=== PATIENT | male | born 1940 | race Caucasian/White ===

== ENCOUNTER → 2017-04-28 07:01 | Outpatient (CLI) | payer MEDICARE | END | disposition home or self-care (01) | LOC: D.CT 04-20 13:00 → D.RAD 04-20 13:00 → D.CT 04-20 14:00 → D.RAD 07:01 | DX: M25.511 Pain in right shoulder (principal) ==

== ENCOUNTER → 2017-06-09 09:24 | Outpatient (CLI) | payer MEDICARE ==
[~2017-06-09 09:24] MED LIST: CENTRUM MEN'S1 EACH PO; CHLORTHALIDONE50 MG PO; FENTANYL; FISH OIL 1,0001 CA1 PO; GABAPENTIN100 MG PO; HYDROCODONE-APA1 TAB PO; HYZAAR 100-25 T1 TAB PO; K-TAB10 MEQ PO; PRAVACHOL40 MG PO; XARELTO20 MG PO; ZYLOPRIM300 MG PO
[2017-06-29 11:05] VITALS: BMI 26.1
== END | disposition home or self-care (01) ==
LOC: D.RAD 09:24
DX: M25.512 Pain in left shoulder (principal)

== ENCOUNTER → 2017-06-29 10:00 | Day surgery (SDC) | payer MEDICARE ==
[2017-06-28 15:24] LABS: HEMATOCRIT 36.2 % (42.0-54.0); HEMOGLOBIN 13.7 g/dL (13.5-17.5); MCH 35.2 pg (26.0-34.0); MCHC 37.8 g/dL (31.0-37.0); MCV 93.1 fL (80.0-100.0); MEAN PLATELET VOLUME 8.8 fL (7.4-10.4); RBC 3.89 10x6/uL (4.20-6.10); RDW 12.6 % (11.5-14.5); WBC 7.6 10x3/uL (4.8-10.8)
[2017-06-28 15:53] LABS: CALC OSMOLALITY 259 mosm/kg (275-300); CALCIUM 8.9 mg/dL (8.5-10.1); CARBON DIOXIDE 30.1 mmol/L (21.0-32.0); CHLORIDE - SERUM 92 mmol/L (98-107); CREATININE - SERUM 0.9 mg/dL (0.6-1.3); GLUCOSE 90 mg/dL (74-106); POTASSIUM - SERUM 3.4 mmol/L (3.5-5.1); SODIUM 130 mmol/L (136-145); UREA NITROGEN 11 mg/dL (7-18); eGFR NON AFRICAN AMERICAN 87 mL/min (90-120)
[~2017-06-29] VITALS: Ht 182.9 cm; Wt 87.3 kg
--- NOTE | ~2017-06-29 | OP ---
PATIENT NAME: RODERICK WITT MEDICAL RECORD: [id number] :42 LOCATION:[facility] ADMISSION DATE: SURGEON: SHERIN BROWN MD DATE OF OPERATION: 06/29/2017 PREOPERATIVE DIAGNOSES: 1. Rotator cuff tear of the left shoulder. 2. Acromioclavicular arthritis of the left shoulder. 3. Impingement syndrome. POSTOPERATIVE DIAGNOSES: 1. Rotator cuff tear of the left shoulder. 2. Acromioclavicular arthritis of the left shoulder. 3. Impingement syndrome. PROCEDURES: 1. Arthroscopic rotator cuff repair of the left shoulder. 2. Arthroscopic distal clavicle excision of the left shoulder - 1 cm done through separate incision. 3. Arthroscopic subacromial decompression, acromioplasty, and bursectomy. SURGEON: Sherin Brown MD ANESTHESIA: General. INTRAOPERATIVE COMPLICATIONS: None. SUMMARY OF PATHOLOGIC FINDINGS: Consistent with the preoperative diagnoses. The patient did indeed have a full-thickness rotator cuff tear with impingement and acromioclavicular arthritis. OPERATIVE SUMMARY IN DETAIL: After obtaining the appropriate preoperative orthopedic surgery consent as well as anesthetic consultation, evaluation, and clearance, the patient was brought to the operating room and placed on the operating table in supine position. After adequate general laryngeal mask was administered, the patient was placed in right lateral decubitus position. All pressure points were well padded to include down leg peroneal pad as well as axillary roll. The patient was held firmly to the operating table using the vacuum pack suction system. Left upper extremity and shoulder were then prepped and draped in routine sterile fashion. Arm was held in the Arthrex traction boom at 30 degrees of forward flexion, 30 degrees of abduction, 10 pounds of traction laterally. Arthroscopy was established in the glenohumeral joint from the posterior portal. Anterior portal was established in the anterior safe interval. Diagnostic arthroscopy revealed the above findings. Transarthroscopic rotator cuff portal was created to help debride portions of torn rotator cuff. Attention was then turned to the subacromial space. While in the subacromial space, Rector tissue ablation system was used to denude the undersurface of the acromion of all soft tissue elements and release the coracoacromial ligament. A 5-0 barrel bur was then used to perform acromioplasty at the level of acromioclavicular joint. Having completed this, separate arthroscopic anterior portal was utilized to remove 1 cm of the distal clavicle with a 5-0 barrel bur. Attention was then returned to the rotator cuff. A #2 FiberTape was placed in inverted mattress style fashion, anchored laterally with 5.5 SwiveLock from Arthrex, resulting in excellent coverage of the supraspinatus tendinous footprint. Having completed this, arthroscopy OPERATIVE REPORT [id number] RODERICK WITT portals were closed in routine interrupted fashion using 4-0 Prolene. Sterile dressings were applied. The patient was awakened and taken to the recovery room in stable condition. All final needle and sponge counts were correct. TRANSINT:[id number] Voice Confirmation ID: [id number] DOCUMENT ID: [id number] STEPHANIE HALL, SHERIN MCCRACKEN at 0749 CC: [id number] DICTATION DATE: 06/29/17 162 TAXI DRIVER: 06/29/171951 [facility] 06/29/17 [facility] [address] [place] [address]
[2017-06-29 11:05] VITALS: Ht 182.9 cm; Wt 87.3 kg
== END | disposition home or self-care (01) ==
LOC: D.OPS 10:00 → D.PAN 12:30 → D.OPS 14:15 → D.PAN 15:20
PROVIDERS: Anesthesiology
DX: M75.122 Complete rotator cuff tear or rupture of left shoulder, not specified as traumatic (principal); M75.42 Impingement syndrome of left shoulder; M13.812 Other specified arthritis, left shoulder; Z01.812 Encounter for preprocedural laboratory examination

== ENCOUNTER → 2018-02-23 09:05 | Outpatient (CLI) | payer MEDICARE ==
[2017-06-29 11:05] VITALS: BMI 26.1
== END | disposition home or self-care (01) ==
LOC: D.LAB 09:05
DX: R68.82 Decreased libido (principal); R53.82 Chronic fatigue, unspecified

== ENCOUNTER → 2018-03-02 08:34 | Outpatient (CLI) | payer MEDICARE ==
[2017-06-29 11:05] VITALS: BMI 26.1
[2018-03-02 09:41] LABS: ALBUMIN 3.2 g/dL (3.4-5.0); BILIRUBIN - DIRECT 0.47 mg/dL (0.00-0.30); BILIRUBIN - INDIRECT 0.64 mg/dL (0.00-1.00); BILIRUBIN - TOTAL 1.11 mg/dL (0.2-1.3); PROTEIN - SERUM 7.4 g/dL (6.4-8.2)
== END | disposition home or self-care (01) ==
LOC: D.CT 08:34
PROVIDERS: Internal Medicine Gastroenterology
DX: K82.8 Other specified diseases of gallbladder (principal); R12 Heartburn; R13.10 Dysphagia, unspecified

== ENCOUNTER 2018-04-02 06:28 | Outpatient (CLI) | payer MEDICARE ==
[2018-04-02 07:16] LABS: BASOPHILS 0.8 % (0-2); EOSINOPHILS 5.2 % (0-7); HEMATOCRIT 42.3 % (42.0-54.0); HEMOGLOBIN 14.9 g/dL (13.5-17.5); IMMATURE GRANULOCYTES 0.3 % (0-5); LYMPHOCYTES 22.2 % (15-50); MCH 33.3 pg (26.0-34.0); MCHC 35.2 g/dL (31.0-37.0); MCV 94.4 fL (80.0-100.0); MEAN PLATELET VOLUME 9.8 fL (7.4-10.4); MONOCYTES 19.4 % (2-11); NEUTROPHILS 52.1 % (40-80); PLATELET COUNT 128 10x3/uL (130-400); RBC 4.48 10x6/uL (4.20-6.10); RDW 13.4 % (11.5-14.5); WBC 6.1 10x3/uL (4.8-10.8)
[2018-04-02 07:24] LABS: CALC OSMOLALITY 273 mosm/kg (275-300); CALCIUM 8.5 mg/dL (8.5-10.1); CARBON DIOXIDE 29.5 mmol/L (21.0-32.0); CHLORIDE - SERUM 98 mmol/L (98-107); CREATININE - SERUM 0.7 mg/dL (0.6-1.3); GLUCOSE 83 mg/dL (74-106); POTASSIUM - SERUM 3.1 mmol/L (3.5-5.1); SODIUM 138 mmol/L (136-145); UREA NITROGEN 11 mg/dL (7-18); eGFR NON AFRICAN AMERICAN > 90 mL/min (90-120)
--- NOTE | 2018-04-02 08:25 | NUR ---
PT REC'D TO ROOM VIA STRETCHER FROM GI LAB. AWAKE, ALERT, ORIENTED. VOLUIS EDUARDO IN TO SPEAK WITH PT AND RE FINDINGS.
--- NOTE | 2018-04-02 08:33 | NUR ---
FULL LIQ DIET PROVIDED.
--- NOTE | 2018-04-02 08:40 | NUR ---
TOLERATED FULL LIQ DIET. UP TO BR.
--- NOTE | 2018-04-02 08:51 | NUR ---
IV D/C'D CATH INTACT.
--- NOTE | 2018-04-02 09:02 | NUR ---
D/C ISNTRUCTIONS EXPLAINED TO PT. VOICED UNDERSTANDING. COPIES OF ALL GIVEN. D/C'D HOME VIA W/C TO PRIVATE CAR.
--- NOTE | 2018-04-02 10:43 | OP ---
PATIENT NAME: RODERICK WITT MEDICAL RECORD: [id number] :42 LOCATION:[facility] ADMISSION DATE: SURGEON: DAVE CHOUDHARY DO DATE OF OPERATION: 04/02/2018 PROCEDURE: EGD with balloon dilation. INDICATIONS FOR PROCEDURE: Dysphagia and heartburn. SCOPE: Olympus video gastroscope. MEDICATIONS: Propofol 100 mg IV per anesthesia. ESTIMATED BLOOD LOSS: Minimal. COMPLICATIONS: None. FINDINGS: Informed consent was given. The patient was made comfortable with the above medication. After reaching an adequate level of sedation by slow IV push, the patient was placed on his left side. The endoscope was advanced under direct visualization through the mouth to the second portion of the duodenum with ease. The entire esophagus appeared normal. At the GE junction, there was a Schatzki's ring, which measured approximately 9-10 mm in diameter. The endoscope was able to traverse the ring prior to dilation. The endoscope was advanced into the stomach and retroflexed to view the cardia, where a very small sliding hiatal hernia was present. The mucosa of the stomach appeared normal without obvious gastritis changes. No biopsies were taken as the patient has only been off Xarelto for 24 hours. The endoscope was advanced beyond the pylorus and the duodenum. The bulb and second portion of the duodenum appeared normal. The endoscope was then withdrawn back into the stomach. A CRE dilating balloon was placed through the working channel and the endoscope was brought up into the esophagus with the balloon crossing the Schatzki ring. Dilation was performed up to 15.5 mm maximum diameter successfully. There was some mild bleeding after dilation, which was stopping on its own. The endoscope was then withdrawn from the patient. The patient tolerated the procedure well and there were no complications. IMPRESSION: 1. Schatzki ring located at the GE junction, status post dilation to 15.5 mm diameter successfully. 2. Small sliding hiatal hernia. PLAN AND RECOMMENDATIONS: 1. Discharge home when recovery parameters are met. 2. GERD diet and reflux precautions. 3. Normal activity. 4. We will bring the patient back in within the next 1-2 weeks for an ERCP based on an abnormal CT scan showing some material in the distal common bile duct with some mild dilation of the common hepatic and common bile duct. TRANSINT:[id number] Voice Confirmation ID: [id number] DOCUMENT ID: [id number] OPERATIVE REPORT [id number] RODERICK WITT,DAVE Stewart DO at 1043 CC: [id number] DICTATION DATE: 04/02/18808 IRONER: 04/02/18 08 [facility] [address] [place] [address]
[2018-04-04 09:37] VITALS: BMI 25.4
== END 2018-04-02 06:29 | disposition home or self-care (01) ==
LOC: D.OPS 06:28 → EDSTATUS 07:30 → D.OPS 07:30
PROVIDERS: Anesthesiology
DX: R13.10 Dysphagia, unspecified (principal); R12 Heartburn; K22.2 Esophageal obstruction; K44.9 Diaphragmatic hernia without obstruction or gangrene; Z01.812 Encounter for preprocedural laboratory examination

== ENCOUNTER 2018-04-04 08:50 | Day surgery (SDC) | payer MEDICARE ==
[~2018-04-04] VITALS: Ht 182.9 cm; Wt 84.8 kg
[2018-04-04 09:16] LABS: HEMATOCRIT 42.3 % (42.0-54.0); HEMOGLOBIN 15.3 g/dL (13.5-17.5); MCH 33.6 pg (26.0-34.0); MCHC 36.2 g/dL (31.0-37.0); MCV 92.8 fL (80.0-100.0); MEAN PLATELET VOLUME 9.5 fL (7.4-10.4); RBC 4.56 10x6/uL (4.20-6.10); RDW 13.2 % (11.5-14.5); WBC 6.8 10x3/uL (4.8-10.8)
[2018-04-04 09:37] VITALS: BP 132/61; Ht 182.9 cm; Wt 84.8 kg
--- NOTE | 2018-04-04 13:16 | NUR ---
84 SECONDS OF FLURO TIME USED 50CC CONTRAST USED
== END 2018-04-04 15:25 | disposition home or self-care (01) ==
LOC: D.OPS 08:50
PROVIDERS: Anesthesiology
DX: K80.50 Calculus of bile duct without cholangitis or cholecystitis without obstruction (principal)

== ENCOUNTER → 2018-04-19 06:25 | Day surgery (SDC) | payer MEDICARE ==
[2018-04-18 08:29] LABS: BASOPHILS 0.6 % (0-2); EOSINOPHILS 4.3 % (0-7); HEMOGLOBIN 14.8 g/dL (13.5-17.5); IMMATURE GRANULOCYTES 0.3 % (0-5); LYMPHOCYTES 17.7 % (15-50); MCH 33.3 pg (26.0-34.0); MCHC 36.1 g/dL (31.0-37.0); MCV 92.1 fL (80.0-100.0); MEAN PLATELET VOLUME 8.9 fL (7.4-10.4); MONOCYTES 12.6 % (2-11); NEUTROPHILS 64.5 % (40-80); RBC 4.45 10x6/uL (4.20-6.10); RDW 12.5 % (11.5-14.5); WBC 6.3 10x3/uL (4.8-10.8)
[2018-04-18 08:42] LABS: CALC OSMOLALITY 273 mosm/kg (275-300); CALCIUM 8.5 mg/dL (8.5-10.1); CARBON DIOXIDE 27.5 mmol/L (21.0-32.0); CHLORIDE - SERUM 97 mmol/L (98-107); CREATININE - SERUM 0.8 mg/dL (0.6-1.3); GLUCOSE 91 mg/dL (74-106); POTASSIUM - SERUM 3.5 mmol/L (3.5-5.1); SODIUM 137 mmol/L (136-145); UREA NITROGEN 12 mg/dL (7-18); eGFR NON AFRICAN AMERICAN > 90 mL/min (90-120)
[2018-04-18 08:48] LABS: PLATELET COUNT 214 10x3/uL (130-400)
[~2018-04-19] VITALS: Ht 182.9 cm; Wt 83.9 kg
[~2018-04-19 06:25] MED LIST changes: +FLOMAX0.4 MG PO; +HYDROCODON-ACE1 EA10 PO; +LOSARTAN/HCT TAB 100 PO; +PROSCAR5 MG PO
[2018-04-19 07:37] VITALS: BP 105/66; Ht 182.9 cm; Wt 83.9 kg
--- NOTE | 2018-04-19 10:39 | NUR ---
OPA IN AIRWAY ON ADMIT
--- NOTE | 2018-04-19 15:19 | NUR ---
PT ABLE TO URINATE. IV REMOVED WITH CATHALON INTACT. DRESSED IN ROOM WITH 'S ASSIST. READY TO GO HOME. ALL DC INSTRUCTIONS GIVEN. VOICED UNDERSTANDING. TAKEN DOWN VIA W/C AND ASSISTED TO CAR WITH . ADVISED TO CALL OR COME BACK IF ANY PROBLEMS.
--- NOTE | 2018-05-10 09:41 | OP ---
PATIENT NAME: RODERICK WITT MEDICAL RECORD: [id number] :42 LOCATION:[facility] ADMISSION DATE: SURGEON: ATTILA PEREZ MD DATE OF OPERATION: 04/19/2018 PREOPERATIVE DIAGNOSES: 1. Right inguinal hernia. 2. Atrial fibrillation. 3. Hypertension. 4. Hyperlipidemia. POSTOPERATIVE DIAGNOSES: 1. Right inguinal hernia. 2. Atrial fibrillation. 3. Hypertension. 4. Hyperlipidemia. PROCEDURE: Right inguinal hernia repair with medium PHS mesh. SURGEON: Attila Perez MD RAW STOCK DYEING MACHINE TENDER: Teena Collins APRN REPORT OF OPERATION: The patient's abdomen was prepped and draped in sterile fashion. An oblique incision was made in the right inguinal region. Electrocautery was used to dissect through the subcutaneous tissues to the external oblique fascia. This fascia was opened up to the external ring using electrocautery. We inspected the area and did not see any evidence of an ilioinguinal nerve. The spermatic cord was elevated and a Nomi was placed around it. The patient did have a indirect hernia defect. This was freed up from the spermatic cord and pushed back into the abdominal cavity. An opening was made in the inguinal floor and the preperitoneal space of Retzius was opened up in all directions. A medium PHS mesh was inserted and sutured down on all sides using multiple interrupted 0 Vicryls. The wound was then irrigated out with normal saline. The external oblique fascia was closed with running 2-0 Vicryl, Buzz's was closed with interrupted 3-0 Vicryl, and the skin was closed with running subcutaneous 5-0 Monocryl. A total of 10 mL of 0.25% Marcaine with epinephrine was infused into the surrounding tissues and the wound was dressed appropriately. COMPLICATIONS: None. CONDITION: Stable. ANESTHESIA: General endotracheal and local. BLOOD LOSS: Minimal. TRANSINT:[id number] Voice Confirmation ID: [id number] DOCUMENT ID: [id number] OPERATIVE REPORT [id number] RODERICK WITT CHRISTIAN MD at 0941 CC: RODERICK SANCHEZ MD [id number] DICTATION DATE: 04/19/18 0959 [employer] PROFESSOR: 04/19/18 1010 [facility] 04/19/18 [place] [id number] [place] [id number]
== END | disposition home or self-care (01) ==
LOC: D.OPS 06:25 → D.PAN 09:15
PROVIDERS: Surgery
DX: K40.90 Unilateral inguinal hernia, without obstruction or gangrene, not specified as recurrent (principal); I48.91 Unspecified atrial fibrillation; I10 Essential (primary) hypertension; E78.5 Hyperlipidemia, unspecified; Z01.812 Encounter for preprocedural laboratory examination

== ENCOUNTER 2018-05-16 09:21 | Day surgery (SDC) | payer MEDICARE ==
[~2018-05-16] VITALS: Ht 182.9 cm; Wt 80.9 kg
[2018-05-16 10:01] LABS: ANION GAP 13.7 mmol/L (8-16); CALCIUM 8.3 mg/dL (8.5-10.1); CARBON DIOXIDE 29.5 mmol/L (21.0-32.0); CREATININE - SERUM 1.1 mg/dL (0.6-1.3); POTASSIUM - SERUM 3.2 mmol/L (3.5-5.1)
[2018-05-16 10:02] LABS: INR 1.14 (0.85-1.17); PROTIME 14.1 SECONDS (11.6-15.0)
[2018-05-16 10:03] LABS: APTT 34.4 SECONDS (22.8-39.4)
[2018-05-16] MEDS ORDERED: NIASPAN500 MG PO (10:06)
[2018-05-16 10:07] LABS: BASOPHILS 0.2 % (0-2); HEMATOCRIT 39.6 % (42.0-54.0); HEMOGLOBIN 14.3 g/dL (13.5-17.5); IMMATURE GRANULOCYTES 0.3 % (0-5); MCH 33.3 pg (26.0-34.0); MCHC 36.1 g/dL (31.0-37.0); MCV 92.1 fL (80.0-100.0); MEAN PLATELET VOLUME 10.7 fL (7.4-10.4); MONOCYTES 14.9 % (2-11); NEUTROPHILS 77.6 % (40-80); RDW 13.2 % (11.5-14.5); WBC 11.9 10x3/uL (4.8-10.8)
[2018-05-16 10:08] LABS: PLATELET COUNT 139 10x3/uL (130-400)
[2018-05-16 10:22] VITALS: BP 111/60; Ht 182.9 cm; Wt 80.9 kg
--- NOTE | 2018-05-16 14:11 | NUR ---
2 MINS 38 SEC FLURO DOSE 50.8 53 CONTRAST=
--- NOTE | 2018-05-16 15:34 | NUR ---
DC INSTRUCTIONS GIVEN TO PT/FAMILY. STATE UNDERSTANDING. DC'D IV CATH FULLY INTACT.
--- NOTE | 2018-05-16 15:35 | NUR ---
PT LEFT UNIT VIA WC AT 1535
== END 2018-05-16 15:35 | disposition home or self-care (01) ==
LOC: D.OPS 09:21
PROVIDERS: Anesthesiology; ATTEND Internal Medicine Gastroenterology
DX: K80.50 Calculus of bile duct without cholangitis or cholecystitis without obstruction (principal); Z01.812 Encounter for preprocedural laboratory examination